=== PATIENT | male | born 1990 | race Caucasian/White ===

== ENCOUNTER → 2022-12-09 11:42 | Outpatient (BNVA) | payer OTHER, SELFPAY | PROVIDERS: Visit Provider Nurse Practitioner Family | DX: M25.561 Pain in right knee (principal); S89.92XA Unspecified injury of left lower leg, initial encounter; S59.902A Unspecified injury of left elbow, initial encounter; M54.50 Low back pain, unspecified; V03.10XD Pedestrian on foot injured in collision with car, pick-up truck or van in traffic accident, subsequent encounter | CPT/HCPCS: 72100; 73080; 73562 ==

== ENCOUNTER → 2022-12-31 16:13 | Outpatient (BNVA) | payer OTHER, SELFPAY | PROVIDERS: Referring Provider Nurse Practitioner Family; Visit Provider Physician Assistant | DX: S83.8X2A Sprain of other specified parts of left knee, initial encounter; V03.10XA Pedestrian on foot injured in collision with car, pick-up truck or van in traffic accident, initial encounter | CPT/HCPCS: 73560; 73565 ==

== ENCOUNTER 2023-01-01 06:00 | Outpatient (CLI) | payer OTHER, SELFPAY | END 2023-01-01 06:01 | disposition home or self-care (01) | LOC: SPT 01-06 14:36 | PROVIDERS: Visit Provider Physician Assistant | DX: Z46.89 Encounter for fitting and adjustment of other specified devices (principal); S89.82XD Other specified injuries of left lower leg, subsequent encounter; X58.XXXD Exposure to other specified factors, subsequent encounter | CPT/HCPCS: 97530; L1812 ==

== ENCOUNTER 2023-01-08 06:00 | Outpatient (RCR) | payer OTHER, SELFPAY | END 2023-01-30 23:59 | disposition home or self-care (01) | LOC: MPT 06:00 | PROVIDERS: Visit Provider Physician Assistant | DX: S83.8X2D Sprain of other specified parts of left knee, subsequent encounter (principal); X58.XXXD Exposure to other specified factors, subsequent encounter | CPT/HCPCS: 97110; 97161; G0283 ==

== ENCOUNTER 2023-01-29 07:02 | Outpatient (CLI) | payer OTHER, SELFPAY ==
--- NOTE | 2023-01-29 07:15 | MR_ITS ---
WS: [id number] MRI LEFT KNEE HISTORY: S83.8X2A - Sprain of other specified parts of left knee, ... COMPARISON: Radiograph 12/31/2022. Prior MRI 12/08/2007 Anterior cruciate ligament: Marked thinning of the ACL. The anterior band appears intact. The posteri or band is not identified. There is some increased T2 signal along the expected location of the ACL. This represents a change since 2007. Posterior cruciate ligament: Intact. Medial collateral ligament: Intact. Posterior lateral corner structures: Intact. Medial menisci: Intact. Normal signal, size and shape. Lateral meniscus: Increased T2 signal adjacent to the posterior horn along the inferior articular rehan face. Extensor mechanism: Distal quadriceps tendon and patellar tendons are intact. Fluid and soft tissue: Soft tissue edema along the anterior knee. No Kamara's cyst. Osseous and articular structures: Patellofemoral compartment: Normal. Medial compartment: No significant narrowing or thinning of the cartilage. Focal marrow edema in the anterior femoral condyle and the tibial plateau near the base of the tibial spines. Lateral compartment: No significant narrowing or cartilage loss. Focal marrow edema in the femoral co ndyle. Centered near the metaphysis. IMPRESSION: 1. Small caliber ACL. The anterior bundle is intact. The posterior bundle is not identified. New find ing since 2007. Suspect torn posterior bundle. 2. Marrow edema near the base of the tibial spines. Closely associated with the ACL attachment. 3. Marrow edema bilaterally in the femoral condyles and at the base of the tibial spines. Consistent with injury from the recent trauma. No fracture. 4. Increased T2 signal posterior horn lateral meniscus. Suspicious for meniscocapsular separation.
== END 2023-01-29 07:03 | disposition home or self-care (01) ==
PROVIDERS: Visit Provider Physician Assistant
DX: S83.8X2A Sprain of other specified parts of left knee, initial encounter (principal); X58.XXXA Exposure to other specified factors, initial encounter; R60.0 Localized edema
CPT/HCPCS: 73721

== ENCOUNTER 2023-03-26 07:53 | Day surgery (SDC) | payer OTHER, SELFPAY ==
[2023-03-26] VITALS (12 sets, daily range): BP systolic 95–143; BP diastolic 65–99; PULSE 65–85; RESP 11–18; TEMP 36–36.8; O2SAT 95–99; BMI 25.0
[2023-03-26] MEDS: sodium chloride 0.9% 1,000 ML 30 ML IV (08:22)
[2023-03-26] MEDS: ketorolac 30 mg/mL INJ IVP (08:23)
[2023-03-26] MEDS: acetaminophen 1,000 MG/100 ML PIGGYBACK 400 MG IV (08:23)
--- NOTE | 2023-03-26 10:25 | ANES.PREANE2 ---
Pre-Anesthetic Assessment Height/Weight: Height 1.7 m Weight 72.575 kg Temp Pulse Resp BP Pulse Ox O2 Del Method 96.8 F L 65 17 123/88 98 Room Air 03/26/23 08:08 03/26/23 08:08 03/26/23 08:08 03/26/23 08:08 03/26/23 08:08 03/26/23 08:10 Operation Date: 03/26/23 09:30 Proposed Procedures p Knee Arthroscopy w/ partial Lateral Menisectomy(Left) - Sb Conley DO Familial anesthetic complications: none Was Beta Hannah taken within 24 hours: N/A Was Clonidine taken within 24 hours: N/A Last intake: Intake Last Liquid Date 03/25/23 Last Liquid Time 23:58 Last Solid Date 03/25/23 Last Solid Time 22:00 Social No alcohol and No tobacco Exam alert, oriented x 3, clear to auscultation bilaterally and regular rate & rhythm Airway Submandibular: within normal limits Cervical ROM: within normal limits Mallampati: Class II Dentition: full History/ROS No significant history except as noted Anesthetic Plan ASA status: 1 Anesthesia: General and Regional (specify below) (Discussed possible adductor v femoral blk postop) Medications/Allergies Home Medications Medication Instructions Recorded Confirmed Last Taken Type tramadol 50 mg tablet 50 mg PO Q8H PRN pain #15 tabs 12/02/22 03/25/23 03/24/23 Rx Economy knee brace #1 ea 12/31/22 02/14/23 Unknown Rx Allergies Allergy/AdvReac Type Severity Reaction Status Date / Time No Known Allergies Allergy Verified 03/26/23 08:31 Current Medications Generic Name Dose Route Start Last Admin Trade Name Freq PRN Reason Stop Dose Admin Sodium Chloride 1,000 mls @ 30 mls/hr 03/26/23 08:00 03/26/23 08:22 Sodium Chloride 0.9% IV 03/27/23 07:59 30 mls/hr .Q24H CARROLL Administration Data Anesthesia Cardiac Studies: No Data to Display
--- NOTE | 2023-03-26 10:56 | P.HP_ITS ---
Same Day Surgery H&P Indication for Procedure/HPI DATE OF PROCEDURE: March 26, 2023 CHIEF COMPLAINT/INDICATIONFOR SURGICAL PROCEDURE: Left knee lateral meniscus tear, possible ACL tear PREOP DIAGNOSIS: Left knee lateral meniscus tear, possible ACL tear PLANNED PROCEDURE: Operation Date: 03/26/23 09:30 Proposed Procedures p Knee Arthroscopy w/ partial Lateral Menisectomy(Left) - Sb Bennington, DO Medications/Allergies* Allergies/Adverse Reactions Allergy/AdvReac Type Severity Reaction Status Date / Time No Known Allergies Allergy Verified 03/26/23 08:31 Current Medications: Generic Name Dose Route Start Last Admin Trade Name Freq PRN Reason Stop Dose Admin Sodium Chloride 1,000 mls @ 30 mls/hr 03/26/23 08:00 03/26/23 08:22 Sodium Chloride 0.9% IV 03/27/23 07:59 30 mls/hr .Q24H CARROLL Administration Pertinent Exam Findings alert, oriented x 3, operative site marked and procedure specific exam findings Recommendations Surgery/Procedure today Other Plans: Plan to proceed to the OR today for a left knee diagnostic and surgical arthroscopy with partial lateral meniscectomy versus repair, possible anterior cruciate ligament debridement versus repair versus reconstruction with quadricep tendon autograft. Patient understands the ins and outs procedure risk benefits complication alternatives of surgery and through shared decision make elects proceed with surgical intervention all questions answered. Coding Level of Care Code Acute Code for Curry Chaparro
[2023-03-26] MEDS: ceFAZolin 2,000 MG in sodium chloride 0.9% (plus) 50 ML 100 MG IV (11:14)
--- NOTE | 2023-03-26 12:25 | W.PM.BPON ---
Date of Procedure: 03/26/2023 Surgeon: Sb Conley DO Corporate Officer(s): José Manuel Conley PA-C Procedure(s) performed: Left knee diagnostic and surgical arthroscopy with lateral meniscus repair Left knee diagnostic and surgical arthroscopy with extensive synovectomy (medial, lateral, patellofemoral) Left knee diagnostic and surgical arthroscopy with bone marrow stimulation Findings of the procedure(s): Patient found to have lateral meniscus tear the ACL was completely intact no evidence of tearing and the bundles appear to be intact. At this point in time found to have a lateral meniscus tear proceeded with lateral meniscus repair and extensive synovectomy. Patient Toller procedure without complications. Estimated blood loss: 5 mL Specimen(s) removed: None Post-operative diagnosis: Left knee lateral meniscus tear
--- NOTE | 2023-03-26 12:27 | P.OP_ITS ---
Operative Report Date of procedure: March 26, 2023 Surgeon: Sb Conley DO Compliance Examiner: José Manuel Conley PA-C: PA was necessary for assistance in this case with leg positioning retraction and retrations, as well as assistance in meniscus repair, wound closure and dressing application. Procedure: Preoperative diagnosis: Left knee partial ACL tear, posterior horn lateral meniscus tear post-op diagnosis: Left ?knee?lateral meniscus tear Left?knee?extensive synovitis Procedure done: Left?knee?diagnostic and surgical arthroscopy lateral meniscus repair Left?knee?diagnostic and surgical arthroscopy with extensive synovectomy of the medial lateral and patellofemoral compartments Surgeon: Sb Conley DO Estimated blood loss: 1 mL Implants: 2 Arthrex meniscal fiber stitch is Tourniquet: No tourniquet was used IV fluids: See anesthesia record Complications: None Findings: See operative report narrative Condition: stable Disposition: same day Brief History: Patient is a 32-year-old male with Left?knee?pain.? Patient has failed conservative treatment who has been worked up for Left??knee?pain in the outpatient setting. MRI findings consistent with tear of the lateral meniscus. talked in the office about treatment options patient would like to proceed with a Left?knee?diagnostic and surgical arthroscopy with partial lateral meniscect ashly versus repair, possible ACL repair versus reconstruction.? Patient understand the ins and outs of the procedure the risk benefits complication alternatives to treatment options.? Understanding risk of surgery they agree to proceed with surgical intervention.? Understanding this and patient agree to proceed with surgical intervention all questions answered. Procedure: Patient seen and evaluated in the preoperative holding area.? Consent was reviewed and signed with patient.? Correct extremity was then marked.? Patient seen evaluated Anesthesia Department once cleared for surgery patient was taken back to the operative suite.? Patient was transported onto the OR table in supine position.? All bony prominences well-padded patient was appropriate secured to the bed.? Once appropriately anesthetized a nonsterile tourniquet was applied to the Left thigh.? The Left lower extremity was then prepped and draped in standard orthopedic fashion.? Final timeout performed.? Patient received a ppropriate preoperative antibiotics. Patient received local anesthetic of lidocaine with epinephrine into the joint as well as around the portal sites.? No tourniquet was inflated A standard 2 portal vertical incision diagnostic and surgical arthroscopy of the Left?knee?was performed in standard fashion.? Small stab incision made in the inferolateral portal introduced trocar and arthroscope into the suprapatellar pouch.? Suprapatellar pouch was subsequently visualized and found to have significant synovitis but no loose bodies.? Patient had noticeable significant inflamed infrapatellar fat pad and thickening hypertrophic within the patellofemoral compartment.? ?The medial gutter was free of loose bodies I then introduced the arthroscope into the medial compartment.? Within the medial compartment I then established my inferior medial working portal utilizing spinal needle outside in technique.? Once established I then visualized our articular cartilage of the medial compartment with a valgus stress.? 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 Next I inspected the meniscus.? With an arthroscopic probe was utilized to visual? all aspects of the meniscus.? Meniscal root was found to be intact.? Rest of the meniscus was found to be intact.? Next, I then performed a synovectomy of the medial compartment.? ? This completed medial compartment work. Next a introduced the arthroscope to the intercondylar notch.? PCL and ACL were intact. There is no evidence of posterior bundle or any type of ACL tear. Patient had significant thickening of the infrapatellar fat pad spanning into the medial and lateral compartments.? I then performed an extensive synovectomy with the arthroscopic shaver of the patellofemoral medial and lateral compartments as well as the intercondylar notch. 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 Lateral meniscus was found to have a tear in the periphery at the meniscocapsular separation in the posterior horn of the lateral meniscus. This was an appropriate breed and prepped for repair as this was patient's young age as well as at the meniscocapsular separation at this point in time identified the popliteus and then subsequently performed to horizontal mattress stitches into the posterior horn of the lateral meniscus to properly secure this. These had excellent fixation and all excess suture was then subsequently removed.. Repair site was then subsequently probed and satisfied fixation..? The root was intact.? 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 This completed my work of the lateral compartment and then performed a synovectomy of the lateral compartment.? Next of the arthroscope was placed into the lateral gutter and this was free of loose bodies.? Finally I reintroduced the arthroscope into the patellofemoral compartment.? 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 At this point I utilized arthroscopic shaver as well as thermal wand to perform extensive synovectomy of the patellofemoral compartment. This completed my work of the patellofemoral space.? I then switch my portal sites to the medial working portal.? Completed the rest of my synovectomy and the rest of my examination arthroscopy was normal. All fluid was suctioned from the joint.? ?All instruments were withdrawn.? Portal sites were closed with interrupted nylon suture.? portal sites were then covered with with Xeroform 4 x 4's ABD Curlex and Rizwan wrap.? Patient placed in a Oldham brace locked in extension prior to waking up. Patient was then subsequently awakened from anesthesia and taken to PACU in stable condition. Disposition: Patient taken to PACU in stable condition recovering well.? Will receive appropriate discharge structure as well as pain medication postoperatively as well as? DVT prophylaxis.we will have patient follow-up with us in the office in 2 weeks. Patient will be toe-touch weightbearing left lower extremity. Follow meniscal repair protocol.? Patient understands and agrees with current plan.? All questions answered.?
[2023-03-26] MEDS: lidocaine-epi 2% 20 mL INJ INJECTION (12:30)
--- NOTE | 2023-03-26 12:50 | PM.PACU ---
PACU note Narrative: Patient is a 32-year-old male that just underwent a left knee arthroscope. Pt transferred to PACU in stable condition. Dressing is dry. pt is awake and alert. His left knee is in a hinged knee brace. Pt can wiggle toes and plantarflex and dorsiflex foot. pt able to perform straight leg raise, Femoral nerve intact. Distal pulses are palpable toes are warm and well-perfused. Cap refill is normal and under 2 seconds. Sensation to foot is intact. Pain is controlled. Exam: awake Disposition: discharged
[2023-03-26] MEDS: fentaNYL 50 mcg/mL INJ 2mL IVP (13:05)
[2023-03-26] MEDS: HYDROcodone-acetaminophen 7.5-325 mg Tablet 1 TAB PO (14:10)
--- NOTE | 2023-03-26 14:19 | ANE.PACU2 ---
Inpatient post-anesthesia follow up: Airway intact: Yes Vital signs: Temperature 98.2 F Pulse Rate 76 Respiratory Rate 16 Blood Pressure 126/80 Pulse Oximetry 97 Oxygen Delivery Me thod Room Air Oxygen Flow Rate 6 Fraction of Inspir ed Oxygen Hydration adequate: Yes Nausea and vomiting: No Pain level: 2 Mental status: Baseline
== END 2023-03-26 14:29 | disposition home or self-care (01) ==
PROVIDERS: Visit Provider Student in an Organized Health Care Education/Training Program
PROC: (CPT 29870; principal; 2023-03-26 09:10)
DX: S83.282A Other tear of lateral meniscus, current injury, left knee, initial encounter (principal); X58.XXXA Exposure to other specified factors, initial encounter; M65.88 Other synovitis and tenosynovitis, other site
CPT/HCPCS: 29876; 29881; C1713; J0131; J0690; J1100; J1885; J2405; J2704; J3010; J7030

== ENCOUNTER 2023-04-01 06:00 | Outpatient (RCR) | payer OTHER, SELFPAY | END 2023-04-02 23:59 | disposition home or self-care (01) | LOC: MPT 06:00 | PROVIDERS: Visit Provider Student in an Organized Health Care Education/Training Program | DX: Z98.890 Other specified postprocedural states (principal) | CPT/HCPCS: 97110; 97161 ==

== ENCOUNTER 2023-04-03 06:00 | Outpatient (RCR) | payer OTHER, SELFPAY | END 2023-05-01 23:59 | disposition home or self-care (01) | LOC: MPT 06:00 | PROVIDERS: Visit Provider Student in an Organized Health Care Education/Training Program | DX: Z47.89 Encounter for other orthopedic aftercare (principal) | CPT/HCPCS: 97110; 97140 ==

== ENCOUNTER 2023-05-02 06:00 | Outpatient (RCR) | payer OTHER, SELFPAY | END 2023-06-01 23:59 | disposition home or self-care (01) | LOC: MPT 06:00 | PROVIDERS: Visit Provider Student in an Organized Health Care Education/Training Program | DX: Z98.890 Other specified postprocedural states (principal) | CPT/HCPCS: 97110; 97116 ==

== ENCOUNTER 2023-06-02 06:00 | Outpatient (RCR) | payer OTHER, SELFPAY | END 2023-07-01 23:59 | disposition home or self-care (01) | LOC: MPT 06:00 | PROVIDERS: Visit Provider Student in an Organized Health Care Education/Training Program | DX: Z98.890 Other specified postprocedural states (principal) | CPT/HCPCS: 97110 ==

== ENCOUNTER 2023-07-02 06:00 | Outpatient (RCR) | payer OTHER, SELFPAY | END 2023-08-01 23:59 | disposition home or self-care (01) | LOC: MPT 06:00 | PROVIDERS: Visit Provider Student in an Organized Health Care Education/Training Program | DX: Z98.890 Other specified postprocedural states (principal) | CPT/HCPCS: 97110; 97112 ==

== ENCOUNTER 2023-08-02 06:00 | Outpatient (RCR) | payer OTHER, SELFPAY | END 2023-08-31 23:59 | disposition home or self-care (01) | LOC: MPT 06:00 | PROVIDERS: Visit Provider Student in an Organized Health Care Education/Training Program | DX: Z47.89 Encounter for other orthopedic aftercare (principal) | CPT/HCPCS: 97110; 97112 ==

== ENCOUNTER 2023-09-01 06:00 | Outpatient (RCR) | payer OTHER, SELFPAY | END 2023-10-01 23:59 | disposition home or self-care (01) | LOC: MPT 06:00 | PROVIDERS: Visit Provider Student in an Organized Health Care Education/Training Program | DX: Z98.890 Other specified postprocedural states (principal) | CPT/HCPCS: 97110 ==

== ENCOUNTER → 2023-11-25 08:44 | Outpatient (BNVA) | payer OTHER, SELFPAY | PROVIDERS: Visit Provider Student in an Organized Health Care Education/Training Program | DX: Z98.890 Other specified postprocedural states (principal); M25.562 Pain in left knee; M25.561 Pain in right knee | CPT/HCPCS: 73560; 73565 ==

== ENCOUNTER → 2024-02-17 08:34 | Outpatient (BNVA) | payer OTHER, SELFPAY | PROVIDERS: Visit Provider Student in an Organized Health Care Education/Training Program | DX: M25.552 Pain in left hip (principal) | CPT/HCPCS: 73502 ==